=== PATIENT | male | born 1985 | race Caucasian/White ===

== ENCOUNTER 2019-10-07 15:46 | Emergency (ER) | payer MEDICAID, OTHER ==
[~2019-10-07] VITALS: Ht 190.5 cm; Wt 115.0 kg
[~2019-10-07 15:46] MED LIST: MIRT30TA4 PO
--- NOTE | 2019-10-07 16:40 | NUR ---
PT RULE OUT OF N-COV. PT FAMILY MEMBER RETURNED FROM [place], [facility], 2 WEEKS AGO. BROTHER HAD RESPIRATORY SYMPTOMS FOR 1 WEEK, NOW HAS NO SYMPTOMS FOR PAST WEEK AND WAS TESTED NEGATIVE FOR N-COV. THIS PT HAS HAD SYMPTOMS OF COUGH, SORE THROAT, CROSS, MUSCLE ACHES, "SWOLLEN LYMPH NODES" STARTING LAST NIGHT. DENIES N/V/D, CP OR SOB. PT VSS, TEMP 99.8. NOT IN RESP DISTRESS PUI FORM COMPLETE BY RN. PT ON ISOLATION INDICATED. FLU SWAB COMPLETE, CXR IN PROGRESS
[2019-10-07 16:46] LABS: RAPID INFLUENZA A Negative (Negative); RAPID INFLUENZA B Negative (Negative)
--- NOTE | 2019-10-07 17:30 | NUR ---
ATTEMPT CALL TO HEALTH DEPARTMENT. NO ANSWER, AFTER HOURS.
[2019-10-07 17:50] VITALS: BP 97/67
--- NOTE | 2019-10-07 18:50 | NUR ---
SECOND SWAB SENT TO LAB.
--- NOTE | 2019-10-07 19:01 | NUR ---
PT PHONE NUMBER [phone]
--- NOTE | 2019-10-07 19:32 | NUR ---
EDUCATED PT ABOUT HEALTH DEPARTMENT CONTACTING HIM. PT EDUCATED ABOUT QUARENTINE AND TO AVOID PUBLIC PLACES AND WORK FOR 2 WEEKS. DC INSTRUCTIONS GIVEN PT UNDERSTANDS. AMBULATED W [employer]Y GATE.
== END 2019-10-07 19:39 ==
LOC: ED 19:33
DX: J02.9 Acute pharyngitis, unspecified (principal)
CPT/HCPCS: 36415; 71045; 87081; 87400; 87880; 99284